=== PATIENT | female | born 1980 | race Caucasian/White ===

== ENCOUNTER 2021-07-14 15:44 | Emergency (ER) | payer SELFPAY ==
[2021-07-14] MEDS ORDERED: Ketorolac 60 MG/2 ML SDV IM ONE (18:20)
[2021-07-14] MEDS ORDERED: Amoxicillin/Clavulanate K 875-125 MG Tab PO ONE (18:20)
--- NOTE | 2021-07-14 18:25 | EDM.PDOC ---
ED HPI GENERAL MEDICAL PROBLEM - General Chief Complaint: ENT Problem Stated Complaint: EAR INFECTION Time Seen by Provider: 07/14/21 18:10 Source of Information: Reports: Patient, RN Notes Reviewed History Limitations: Reports: No Limitations - History of Present Illness INITIAL COMMENTS - FREE TEXT/NARRATIVE: Patient is a 40-year-old female presents to the ER for evaluation of her ongoing sinus issues. States she has had sinus congestion and pressure for the last 2 weeks, seems to be worse on her right cheek, and right ear. Her whole face seems to be tender to the touch. Has been trying to use home-based remedies for this and [place] pot and sinus rinses but nothing seems to be helping. Been using Tylenol and ibuprofen with little benefit. Denying any fevers or chills, cough or shortness of breath or any nausea/vomiting/diarrhea. right ear Pain Score (Numeric/FACES): 7 - Related Data Allergies Allergy/AdvReac Type Severity Reaction Status Date / Time Sulfa (Sulfonamide Allergy Facial Verified 07/14/21 17:01 Antibiotics) Swelling Home Meds: Home Meds Amoxicillin/Clavulanate K [Augmentin 875-125 MG] 1 tab PO BID #20 tablet 07/14/21 [Rx] Past Medical History - Past Health History Medical/Surgical History: Denies Medical/Surgical History HEENT History: Reports: Sinusitis Social & Family History - Tobacco Use Tobacco Use Status *Q: Current Every Day Tobacco User Years of Tobacco use: 20 Packs/Tins Daily: 1 - Recreational Drug Use Recreational Drug Use: No ED ROS ENT - Review of Systems Review Of Systems: Comprehensive ROS is negative, except as noted in HPI. ED EXAM, ENT - Physical Exam Exam: See Below Exam Limited By: No Limitations General Appearance: Alert, WD/WN, No Apparent Distress Ears: Normal External Exam, Normal Canal, Hearing Grossly Normal, Normal TMs Nose: Normal Inspection, No Blood, Injected Turbinates (bilateral) Mouth/Throat: Normal Inspection, Normal Gums, Normal Lips, Normal Oropharynx, Normal Teeth Head: Sinus Tenderness (R frontal and maxillary) Respiratory/Chest: No Respiratory Distress, Lungs Clear, Normal Breath Sounds, No Accessory Muscle Use, Chest Non-Tender Cardiovascular: Normal Peripheral Pulses, Regular Rate, Rhythm, No Edema Neurological: Alert, Oriented, Normal Cognition, No Motor/Sensory Deficits Psychiatric: Normal Affect, Normal Mood Skin: Warm, Dry, Intact, Normal Color, No Rash Course - Vital Signs Last Recorded V/S: Last Vital Signs Temp 97.5 F 07/14/21 17:02 Pulse 77 07/14/21 17:02 Resp 18 07/14/21 17:02 BP 134/78 07/14/21 17:02 Pulse Ox 100 07/14/21 17:02 - Orders/Labs/Meds Meds: Medications Discontinued Medications Generic Name Dose Route Start Last Admin Trade Name Carmella PRN Reason Stop Dose Admin Amoxicillin/Clavulanate Potassium 1 tab 07/14/21 18:20 Amoxicillin/Clavulanate K 875-125 Mg Tab PO 07/14/21 18:21 ONETIME ONE Ketorolac Tromethamine 60 mg 07/14/21 18:20 Ketorolac 60 Mg/2 Ml Sdv IM 07/14/21 18:21 ONETIME ONE - Re-Assessments/Exams Free Text/Narrative Re-Assessment/Exam: 07/14/21 18:25 Patient presents to the ER for evaluation of her suspected sinus infection. Since this has been going on for about 2 weeks, I do agree that she likely has more of an infection versus regular sinusitis. We'll go ahead and get her started on Augmentin and give her Toradol for pain management and she states she did not sleep well last night due to the pain. Patient will be discharged home with conservative recommendations. Departure - Departure Time of Disposition: 18:26 Disposition: Home, Self-Care 01 Condition: Good Clinical Impression: Sinus infection Qualifiers: Sinusitis location: other Chronicity: acute Recurrence: non-recurrent Qualified Code(s): J01.80 - Other acute sinusitis - Discharge Information *PRESCRIPTION DRUG MONITORING PROGRAM REVIEWED*: No *COPY OF PRESCRIPTION DRUG MONITORING REPORT IN PATIENT LEROY: No Prescriptions: Amoxicillin/Clavulanate K [Augmentin 875-125 MG] 1 tab PO BID #20 tablet Instructions: Sinusitis, Adult, [id number] Referrals: PCP,None [Primary Care Provider] - Forms: ED Department Discharge Additional Instructions: You were evaluated in the ER today for your suspected sinus infection. Clinical exam was consistent with sinus infection at this time. You will be started on antibiotics this will be Augmentin 1 tablet 2 times a day for the next 10 days or until gone. Your first dose was given in the ER, you will need to go to your preferred pharmacy tomorrow to apple picker the rest of the medication to take as directed please note antibiotics can take up to 48 h to start providing effect, if you do not notice a difference in your symptoms by Thursday of this next week, you should seek care for reevaluation. This medication was electronically sent to the [place] [facility] located in the [employer]. Recommend you use Tylenol and ibuprofen every 6 hours as needed for ongoing pain management, please continue to also use the sinus rinses that you were using to provide continued sinus cleanse. Do not hesitate to return to the ER at any time if symptoms change or worsen. Sepsis Event Note (ED) - Evaluation Sepsis Screening Result: No Definite Risk - Focused Exam Vital Signs: Vital Signs Temp Pulse Resp BP Pulse Ox 07/14/21 17:02 97.5 F 77 18 134/78 100
== END 2021-07-14 18:48 | disposition home or self-care (01) ==
LOC: JD.ED 15:44
DX: J01.80 Other acute sinusitis (principal); Z88.2 Allergy status to sulfonamides; Z72.0 Tobacco use
CPT/HCPCS: 96372; 99283; A9270; J1885